=== PATIENT | female | born 1950 | race Caucasian/White ===

== ENCOUNTER 2016-08-02 07:34 | Day surgery (SDC) | payer OTHER ==
[2016-07-29 08:52] VITALS: BMI 30.7
[~2016-08-02 07:34] MED LIST: LACTATED RINGERS 1,000 ML IV SCH
[2016-08-02 08:00] VITALS: RESP 16; TEMP 98.6
[2016-08-02] MEDS ORDERED: PROPOFOL 10 MG/ML 20 ML VIAL IV ONE (08:16)
[2016-08-02] MEDS ORDERED: LIDOCAINE 1% INJ 10MG/ML (20 ML MDV) ONE (08:16)
[2016-08-02] MEDS ORDERED: GLUCAGON 1 MG/ML VIAL ONE (08:16)
--- NOTE | 2016-08-02 08:37 | P.PCN ---
Date of Procedure: 08/02/16 Preoperative Diagnosis: Prior rectal adenoma serrated Postoperative Diagnosis: Diverticuli, internal hemorrhoids, tortuous sigmoid colon Procedure(s) Performed: Colonoscopy Anesthesia: MAC Surgeon: Marleen Nava Estimated Blood Loss (ml): 0 IV fluids (ml): 300 Pathology: none sent Condition: stable Disposition: PACU Indications for Procedure: Prior serrated adenoma of the rectum Operative Findings: Diverticuli, internal hemorrhoids, tortuous sigmoid colon Description of Procedure: Patient was taken to the endoscopy suite and following sedation rectal exam was performed. Patient was noted to have good sphincter tone no masses. Colonoscope was passed through the anus into the rectum. Was passed through the sigmoid colon where was noted to be very tortuous and redundant glucagon was given with relaxation of the sigmoid colon the scope was able to be passed through the sigmoid colon up to the splenic flexure. Was passed to the transverse colon to the hepatic flexure right colon down to the area of the cecum. Circumferential observation mucosa did not reveal any lesions of concern in the cecum or right colon. No lesions of concern in the transverse colon. No lesions of concern in the left colon or sigmoid colon. The sigmoid colon was tortuous and redundant and diverticuli were identified. Scope was brought down to the rectum where it was retroflexed internal hemorrhoids identified no mucosal lesions of concern noted. Proximally 6 minutes were taken to withdraw the scope from the area of the cecum to the rectum. Patient tolerated procedure in stable condition. Impression/plan: 1. Tortuous redundant sigmoid colon 2. Internal hemorrhoids 3. Diverticuli Plan: 1. Conservative management of diverticuli and internal hemorrhoids 2. Repeat scope in 5-7 years secondary to prior serrated adenoma
--- NOTE | 2016-08-02 08:39 | P.DS ---
Providers Attending physician: Marleen Nava Primary care physician: Melvin Peng Plan - Discharge Summary Discharge Medication List Latanoprost Ophth [Xalatan 0.005%] 1 drops BOTH EYES QAM 05/12/16 [History] Levothyroxine Sodium [Levoxyl] 150 mcg PO QAM 05/12/16 [History] Timolol [Betimol 0.5% Ophth Soln] 1 drop BOTH EYES BID 05/12/16 [History] Activity/Diet/Wound Care/Special Instructions: Diverticular diet Do not drive today Follow-up with Dr. Peng in 1 year or call with any questions or problems Discharge Disposition: HOME SELF-CARE
[2016-08-02 08:55] VITALS: BP 146/94; PULSE 75
== END 2016-08-02 09:25 | disposition home or self-care (01) ==
LOC: ORWHC2ENDO 07:34
PROVIDERS: ATTEND Surgery
DX: Z12.11 Encounter for screening for malignant neoplasm of colon (principal); Z87.19 Personal history of other diseases of the digestive system; K57.30 Diverticulosis of large intestine without perforation or abscess without bleeding; K64.8 Other hemorrhoids; Q43.8 Other specified congenital malformations of intestine; Z88.1 Allergy status to other antibiotic agents; Z88.2 Allergy status to sulfonamides; Z88.8 Allergy status to other drugs, medicaments and biological substances; Z79.899 Other long term (current) drug therapy; Z91.018 Allergy to other foods
CPT/HCPCS: J1610; J2001; J2704; G0105

== ENCOUNTER → 2016-08-03 | Outpatient (CLI) | payer OTHER ==
--- NOTE | 2016-08-03 12:48 | MM ---
Reason for exam: screening (asymptomatic). Last mammogram was performed 3 years and 1 month ago. History: Patient is postmenopausal. Took hormonal contraceptives for 4 years beginning at age 18. Took estrogen for 10 years beginning at age 40. Physical Findings: A clinical breast exam by your physician is recommended on an annual basis and results should be correlated with mammographic findings. MG Screening Mammo w CAD Bilateral CC and MLO view(s) were taken. Prior study comparison: July 09, 2013, bilateral digital screening mammo w/CAD. The breast tissue is heterogeneously dense. This may lower the sensitivity of mammography. Finding: There are typically benign round calcifications in both breasts. There is no discrete abnormality. ASSESSMENT: Benign, BI-RAD 2 RECOMMENDATION: Routine screening mammogram of both breasts in 1 year.
--- NOTE | 2016-08-03 13:48 | BD ---
EXAMINATION TYPE: MG DEXA axial skeleton. DATE OF EXAM: 08/03/2016 8:49 AM COMPARISON: NONE CLINICAL HISTORY: Height: 5FT 1 IN Weight: 155 FRAX RISK QUESTIONS: Alcohol (3 or more units per day): YES Family History (Parent hip fracture): NO Glucocorticoids (More than 3mos): NO (Ex: prednisone, prednisolone, methylprednisolone, dexamethasone, and hydrocortisone). History of Fracture in Adulthood: YES Secondary Osteoporosis: 1. Type 1 Diabetes: NO 2. Hyperthyroidism: NO 3. Menopause before 45: YES 4. Malnutrition: NO 5. Chronic liver disease: NO Rheumatoid Arthritis: NO Current Tobacco Use: NO RISK FACTORS HISTORY OF: Other Fractures since Age 50: LT ELBOW FX When: [id number] Drink Alcohol: YES Active: YES Postmenopausal woman: AGE 40 Lost more than 2 inches in height since high school: YES MEDICATIONS: Thyroid Medications: YES Which medication: LEVOTHYROXINE How Long: SINCE AGE 40 Additional Medications: Additional History: MICHELE GANGLION CYSTS REMOVED FROM WRISTS EXAM MEASUREMENTS: Bone mineral densitometry was performed using the [employer] System. Bone mineral density as measured about the Lumbar spine is: ----- L1-L4(G/cm2): 1.329 T Score Values are as follows: ----- L2: -0.4 ----- L3: 1.6 ----- L4: 2.9 ----- L1-L4: 1.2 Bone mineral density has: Decreased -0.5% since study of: 2013 Bone mineral density about the R hip (g/cm2): 0.838 Bone mineral density about the L hip (g/cm2): 0.815 T Score values are as follows: -----R Neck: -1.4 -----L Neck: -1.6 -----R Intertrochanter: -0.7 -----L Intertrochanter: -1.1 Bone mineral density has: Decreased -3.2% since study of: 2013 IMPRESSION: Osteopenia (T Score between -2.5 and -1 as noted by T score values There is slightly increased risk of fracture and the patient may be considered for treatment. Re-Screen 1-2 years. MICHELE HIPS NOTE: T-SCORE=SD OF THE YOUNG ADULT MEAN.
== END | disposition home or self-care (01) ==
LOC: RADMAMWWP 08:09
PROVIDERS: ATTEND Family Medicine
DX: Z12.31 Encounter for screening mammogram for malignant neoplasm of breast (principal); M85.80 Other specified disorders of bone density and structure, unspecified site; Z78.0 Asymptomatic menopausal state
CPT/HCPCS: 77080; G0202

== ENCOUNTER → 2017-08-09 | Outpatient (CLI) | payer OTHER ==
--- NOTE | 2017-08-11 10:57 | MM ---
Reason for exam: screening (asymptomatic). Last mammogram was performed 1 year ago. History: Patient is postmenopausal. Took hormonal contraceptives for 4 years beginning at age 18. Took estrogen for 10 years beginning at age 40. Physical Findings: A clinical breast exam by your physician is recommended on an annual basis and results should be correlated with mammographic findings. MG Screening Mammo w CAD Bilateral CC and MLO view(s) were taken. Prior study comparison: August 03, 2016, bilateral MG screening mammo w CAD. July 09, 2013, bilateral digital screening mammo w/CAD. The breast tissue is heterogeneously dense. This may lower the sensitivity of mammography. No significant changes when compared with prior studies. ASSESSMENT: Benign, BI-RAD 2 RECOMMENDATION: Routine screening mammogram of both breasts in 1 year.
== END | disposition home or self-care (01) ==
LOC: RADMAMWWP 08:10
PROVIDERS: ATTEND Family Medicine
DX: Z12.31 Encounter for screening mammogram for malignant neoplasm of breast (principal)
CPT/HCPCS: 77067

== ENCOUNTER → 2018-07-06 | Outpatient (CLI) | payer MEDICARE ==
--- NOTE | 2018-07-06 07:31 | US ---
EXAMINATION TYPE: US duplex aorta DATE OF EXAM: 07/06/2018 COMPARISON: NONE CLINICAL HISTORY: Z13.9 Encounter for screening. Family history of AAA. EXAM MEASUREMENTS: Abdominal Aorta: Proximal: 1.7 x 2.0 cm Mid: 1.8 x 1.9 cm Distal: 2.1 x 1.8 cm Bifurcation: rt, 1.1 x 1.3 cm ly, 1.1 x 1.2 cm Aorta is visualized from diaphragm through the bifurcation. IMPRESSION: No ultrasound evidence for AAA.
== END | disposition home or self-care (01) ==
LOC: RADUSWWP 07:03
PROVIDERS: ATTEND Family Medicine
DX: Z13.9 Encounter for screening, unspecified (principal)
CPT/HCPCS: 93979

== ENCOUNTER → 2018-08-13 | Outpatient (CLI) | payer MEDICARE ==
--- NOTE | 2018-08-15 11:48 | MM ---
Reason for exam: screening (asymptomatic). Last mammogram was performed 1 year ago. History: Patient is postmenopausal. Took hormonal contraceptives for 4 years beginning at age 18. Took estrogen for 10 years beginning at age 40. Physical Findings: A clinical breast exam by your physician is recommended on an annual basis and results should be correlated with mammographic findings. MG 3D Screening Mammo W/Cad Bilateral CC and MLO view(s) were taken. Prior study comparison: August 09, 2017, bilateral MG screening mammo w CAD. August 03, 2016, bilateral MG screening mammo w CAD. There are scattered fibroglandular densities. No significant changes when compared with prior studies. ASSESSMENT: Negative, BI-RAD 1 RECOMMENDATION: Routine screening mammogram of both breasts in 1 year.
== END ==
LOC: RADMAMWWP 09:48
PROVIDERS: ATTEND Family Medicine
DX: Z12.31 Encounter for screening mammogram for malignant neoplasm of breast (principal)
CPT/HCPCS: 77063; 77067

== ENCOUNTER → 2019-10-28 | Outpatient (CLI) | payer MEDICARE, OTHER ==
--- NOTE | 2019-10-30 10:24 | MM ---
Reason for exam: screening (asymptomatic). Last mammogram was performed 1 year and 2 months ago. History: Patient is postmenopausal. Family history of breast cancer in daughter at age 46. Took hormonal contraceptives for 4 years beginning at age 18. Took estrogen for 10 years beginning at age 40. Physical Findings: A clinical breast exam by your physician is recommended on an annual basis and results should be correlated with mammographic findings. MG 3D Screening Mammo W/Cad Bilateral CC and MLO view(s) were taken. Prior study comparison: August 13, 2018, bilateral MG 3d screening mammo w/cad. August 09, 2017, bilateral MG screening mammo w CAD. There are scattered fibroglandular densities. No significant changes when compared with prior studies. ASSESSMENT: Benign, BI-RAD 2 RECOMMENDATION: Routine screening mammogram of both breasts in 1 year.
== END | disposition home or self-care (01) ==
LOC: RADMAMWWP 07:31
PROVIDERS: ATTEND Family Medicine
DX: Z12.31 Encounter for screening mammogram for malignant neoplasm of breast (principal); Z78.0 Asymptomatic menopausal state
CPT/HCPCS: 77063; 77067

== ENCOUNTER → 2019-11-01 | Outpatient (CLI) | payer MEDICARE, OTHER | END | disposition home or self-care (01) | LOC: LABWHC1 09:32 | PROVIDERS: ATTEND Family Medicine | DX: Z20.828 Contact with and (suspected) exposure to other viral communicable diseases (principal) | CPT/HCPCS: U0003; C9803 ==

== ENCOUNTER 2019-11-21 07:51 | Day surgery (SDC) | payer MEDICARE, OTHER ==
[2019-11-19 14:29] VITALS: BMI 33.0
[~2019-11-21 07:51] MED LIST changes: +LIDOCAINE 1% (10MG/ML) FOR IV START INTRADERMA PRN
[2019-11-21 08:07] VITALS: TEMP 98
[2019-11-21] MEDS ORDERED: LIDOCAINE 1% INJ 10MG/ML (20 ML MDV) ONE (08:55)
[2019-11-21] MEDS ORDERED: PROPOFOL 10 MG/ML 20 ML VIAL IV ONE (08:55)
--- NOTE | 2019-11-21 09:26 | P.PCN ---
Date of Procedure: 11/21/19 Description of Procedure: BRIEF HISTORY: Patient is a 69-year-old female presenting for evaluation of epigastric pain with esophagogastroduodenoscopy. She reports a long-standing history of reflux disease currently on omeprazole daily and Pepcid at night. She reports good control with this regimen but breakthrough symptoms if she misses medications. PROCEDURE PERFORMED: Esophagogastroduodenoscopy with biopsy. PREOPERATIVE DIAGNOSIS: Epigastric abdominal pain, GERD. ESTIMATED BLOOD LOSS: Minimal. IV sedation per anesthesia. PROCEDURE: After informed consent was obtained, the patient was brought into the endoscopy unit. IV sedation was administered by Anesthesia under continuous monitoring. Initially the Olympus GIF-190 video endoscope was inserted into the mouth. Esophagus intubated without any difficulty. It was gradually advanced into the stomach and duodenum and carefully examined. The bulb and the second part of the duodenum appeared normal, with biopsies taken. The scope at this time was withdrawn to the stomach, adequately insufflated with air, and upon careful examination, mucosa of the antrum, body, cardia and the fundus appeared normal, except for some mild scattered erythema in the antrum and body suggestive mild gastritis with biopsies taken. The scope was then withdrawn into the esophagus. The GE junction was located at 33 cm from the incisors, with biopsies taken. A 4 cm hiatal hernia was noted. The esophagus appeared normal. There were no erosions or ulcerations seen and the patient tolerated the procedure well. IMPRESSION: 1. Mild gastritis antrum body, biopsied. 2. Biopsies of the GE junction and duodenum. 3. Large hiatal hernia. RECOMMENDATIONS: The findings of this examination were discussed with the patient. Okay to resume diet. Okay to resume medications. Await pathology from biopsies. Continue current medical regimen with omeprazole and Pepcid therapy.
[2019-11-21 09:46] VITALS: BP 127/67; PULSE 67; RESP 18
== END 2019-11-21 09:53 | disposition home or self-care (01) ==
LOC: ORWHC2ENDO 07:51
PROVIDERS: ATTEND Internal Medicine
DX: K21.0 Gastro-esophageal reflux disease with esophagitis (principal); K44.9 Diaphragmatic hernia without obstruction or gangrene; K29.70 Gastritis, unspecified, without bleeding; E07.9 Disorder of thyroid, unspecified; H40.9 Unspecified glaucoma; Z88.2 Allergy status to sulfonamides; Z79.890 Hormone replacement therapy; Z79.899 Other long term (current) drug therapy; Z90.710 Acquired absence of both cervix and uterus; Z98.890 Other specified postprocedural states; Z88.8 Allergy status to other drugs, medicaments and biological substances; Z86.010 Personal history of colon polyps
CPT/HCPCS: 88305; 43239; J2001; J2704

== ENCOUNTER → 2019-12-06 | Outpatient (CLI) | payer MEDICARE, OTHER ==
--- NOTE | 2019-12-06 13:50 | BD ---
EXAMINATION TYPE: Axial Bone Density DATE OF EXAM: 12/06/2019 COMPARISON: NONE CLINICAL HISTORY: Postmenopausal female Height: 60 Weight: 165.4 FRAX RISK QUESTIONS: Alcohol (3 or more units per day): no Family History (Parent hip fracture): no Glucocorticoids (More than 3mos): no (Ex: prednisone, prednisolone, methylprednisolone, dexamethasone, and hydrocortisone). History of Fracture in Adulthood: yes Secondary Osteoporosis: 1. Type 1 Diabetes: no 2. Hyperthyroidism: no 3. Menopause before 45: yes 4. Malnutrition: no 5. Chronic liver disease: no Rheumatoid Arthritis: no Current Tobacco Use: no RISK FACTORS HISTORY OF: Family History of Osteoporosis: no Active: yes Diet low in dairy products/other sources of calcium: no Postmenopausal woman: age 40 Lost more than 2 inches in height since high school: yes MEDICATIONS: gerd meds Thyroid Medications: levothyroxine How Lon years Additional History: EXAM MEASUREMENTS: Bone mineral densitometry was performed using the [employer] System. Bone mineral density as measured about the Lumbar spine is: ----- L1-L4(G/cm2): 1.286 T Score Values are as follows: ----- L2: -0.9 ----- L3: 0.9 ----- L4: 2.9 ----- L1-L4: 0.9 Bone mineral density has: decreased -4.3 % since study of: 08.03.2016 Bone mineral density about the R hip (g/cm2): 0.799 Bone mineral density about the L hip (g/cm2): 0.801 T Score values are as follows: -----R Neck: -1.7 -----L Neck: -1.7 -----R Total: -1.1 -----L Total: -1.2 Bone mineral density has: decreased -6.6 % since study of: 08.03.2016 IMPRESSION: Osteopenia (T Score between -2.5 and -1). There is slightly increased risk of fracture and the patient may be considered for treatment. Re-Screen 2-5 years. NOTE: T-SCORE=SD OF THE YOUNG ADULT MEAN.
== END | disposition home or self-care (01) ==
LOC: RADBDWWP 08:45
PROVIDERS: ATTEND Family Medicine
DX: M85.80 Other specified disorders of bone density and structure, unspecified site (principal)
CPT/HCPCS: 77080

== ENCOUNTER → 2020-06-16 | Outpatient (CLI) | payer MEDICARE, OTHER ==
--- NOTE | 2020-06-16 12:12 | XR ---
EXAMINATION TYPE: XR Hip Bilateral and AP pelvis DATE OF EXAM: 06/16/2020 COMPARISON: 06/25/2013 HISTORY: Chronic pain TECHNIQUE: Pelvis is examined in a single frontal projection. Bilateral hips are examined in 2 views each. FINDINGS: Spina bifida occulta of S1 is present. There may be attempted lumbarization of S1. Femoral heads articulate with the acetabulum. Joint spaces appear preserved. Symphysis pubis and sacr oiliac joints are patent. No acute fractures are evident. IMPRESSION: 1. No acute osseous abnormalities bilateral hips and pelvis. 2. Chronic changes at the lumbosacral junction
== END | disposition home or self-care (01) ==
LOC: RADXRMAIN 11:17
PROVIDERS: ATTEND Nurse Practitioner Family
DX: M16.0 Bilateral primary osteoarthritis of hip (principal)
CPT/HCPCS: 73521

== ENCOUNTER → 2020-10-30 | Outpatient (CLI) | payer MEDICARE, OTHER ==
--- NOTE | 2020-11-03 13:44 | MM ---
Reason for exam: screening (asymptomatic). Last mammogram was performed 1 year ago. History: Patient is postmenopausal. Family history of breast cancer in daughter at age 46. Took hormonal contraceptives for 4 years beginning at age 18. Took estrogen for 10 years beginning at age 40. Physical Findings: A clinical breast exam by your physician is recommended on an annual basis and results should be correlated with mammographic findings. MG 3D Screening Mammo W/Cad Bilateral CC and MLO view(s) were taken. Prior study comparison: October 28, 2019, bilateral MG 3d screening mammo w/cad. August 13, 2018, bilateral MG 3d screening mammo w/cad. No significant changes when compared with prior studies. ASSESSMENT: Benign, BI-RAD 2 RECOMMENDATION: Routine screening mammogram of both breasts in 1 year.
== END | disposition home or self-care (01) ==
LOC: RADMAMWWP 07:25
PROVIDERS: ATTEND Family Medicine
DX: Z12.31 Encounter for screening mammogram for malignant neoplasm of breast (principal); Z78.0 Asymptomatic menopausal state; Z80.3 Family history of malignant neoplasm of breast; Z79.3 Long term (current) use of hormonal contraceptives
CPT/HCPCS: 77063; 77067

== ENCOUNTER → 2021-07-28 | Outpatient (CLI) | payer MEDICARE, OTHER ==
--- NOTE | 2021-07-28 21:25 | XR ---
EXAMINATION TYPE: XR cervical spine 5 views comp, XR knee complete 3 views RT, XR shoulder complete 3 views LT DATE OF EXAM: 07/28/2021 COMPARISON: None HISTORY: 70-year-old female and 5 4.2, pain after fall 2 weeks ago. M2 4.9, M3.90. FINDINGS: Cervical spine: No predental space widening or prevertebral soft tissue swelling. Degenerative changes of the C1 dens articulation. Mild to moderate degenerative disc disease with endplate spondylosis C5-C7 levels. The re is degenerative trace grade 1 anterolisthesis C4-C5. Hypertrophic facet and uncovertebral joint ar thropathy at multiple levels. On the left, there is moderate bony neuroforaminal narrowing at C4-C5, C5-C6, and C6-C7. On the right, moderate bony neuroforaminal narrowing C6-C7 and mild to moderate C4- C5. Normal odontoid view. Left shoulder: Mild degenerative spurring and joint space narrowing at the AC joint. Degenerative spurring inferior humeral head with mild joint space narrowing. Bony irregularity at the greater tuberosity. There is h azy density at the left base which may represent prominent superimposed soft tissue. Right knee: Tricompartmental degenerative spurring. Mild anterior soft tissue swelling. Extensor mechanism is int act. No knee joint effusion. IMPRESSION: 1. Cervical spine: Moderate multilevel spondylotic change. Degenerative grade 1 anterolisthesis C4-C5 . Variable moderate bony neuroforaminal narrowing, left greater than right as above. 2. Left shoulder: Mild AC joint OA. Possibly more moderate GH joint OA. Additional bony changes heidi tible with chronic rotator cuff tendinopathy. No acute osseous abnormality seen. Questionable density at the left base could represent superimposed soft tissue. If any respiratory signs/symptoms, dedica du chest radiograph can be performed. 3. Right knee: Mild to moderate tricompartmental osteoarthrosis. A weight-bearing view could better a ssess the degree of joint space narrowing. Anterior soft tissue swelling. No joint effusion or acute osseous abnormality seen.
== END | disposition home or self-care (01) ==
LOC: RADXRMAIN 16:57
PROVIDERS: ATTEND Family Medicine
DX: M47.812 Spondylosis without myelopathy or radiculopathy, cervical region (principal); M43.12 Spondylolisthesis, cervical region; M99.71 Connective tissue and disc stenosis of intervertebral foramina of cervical region; M19.012 Primary osteoarthritis, left shoulder; M17.11 Unilateral primary osteoarthritis, right knee; M79.89 Other specified soft tissue disorders
CPT/HCPCS: 72050

== ENCOUNTER → 2021-08-27 | Outpatient (CLI) | payer MEDICARE ==
--- NOTE | 2021-08-27 12:29 | MR ---
EXAMINATION TYPE: MR knee RT wo con DATE OF EXAM: 08/27/2021 COMPARISON: None HISTORY: Right knee pain TECHNIQUE: Multiplanar, multisequence images of the knee is performed without IV contrast. FINDINGS: MEDIAL MENISCUS: Anterior and posterior horns are intact without tear. LATERAL MENISCUS: Diminutive anterior horn and body of the lateral meniscus could reflect a prior men iscectomy. Correlate clinically. Tear is not excluded. CRUCIATE LIGAMENTS: The anterior and posterior cruciate ligaments are intact and unremarkable. COLLATERAL LIGAMENTS: The medial collateral ligament and lateral collateral ligament complex are inta ct and unremarkable. EXTENSOR MECHANISM: Visualized quadriceps and patellar tendons are intact. EFFUSION: Small joint effusion present POPLITEAL CYST: Díaz's cyst measuring 5.4 cm in length and 9.5 mm AP dimension. TRICOMPARTMENT SPACES: Moderate degenerative narrowing lateral tibiofemoral joint space with mild fermin rowing medial tibiofemoral joint space. Moderate narrowing patellofemoral joint space with changes of chondromalacia patella and cartilaginous thinning. CARTILAGE: Intact BONE MARROW SIGNAL: No focal abnormal marrow signal is appreciated. OTHER: No additional significant abnormality is appreciated. IMPRESSION: 1.Diminutive anterior horn and body of the lateral meniscus could reflect a prior meniscectomy. Corre late clinically. Tear is not excluded. 2. Degenerative changes of osteoarthritis. Chondromalacia patella. 3. Díaz's cyst
== END | disposition home or self-care (01) ==
LOC: RADMRIMAIN 10:25
PROVIDERS: ATTEND Orthopaedic Surgery
DX: M17.11 Unilateral primary osteoarthritis, right knee (principal); M22.41 Chondromalacia patellae, right knee; M71.21 Synovial cyst of popliteal space [Baker], right knee

== ENCOUNTER 2021-10-28 08:19 | Day surgery (SDC) | payer MEDICARE, OTHER ==
[2021-10-26 15:41] VITALS: BMI 30.2
--- NOTE | 2021-10-28 07:36 | P.GSHP ---
History of Present Illness H&P Date: 10/28/21 CHIEF COMPLAINT: Colon screen HISTORY OF PRESENT ILLNESS: The patient is a 71-year-old female who presents for colon screen. Lower endoscopy was offered for further evaluation and management. PAST MEDICAL HISTORY: Please see list. PAST SURGICAL HISTORY: Please see list. MEDICATIONS: Please see list. ALLERGIES: Please see list. SOCIAL HISTORY: No illicit drug use FAMILY HISTORY: No reports of Crohn disease or ulcerative colitis. REVIEW OF ORGAN SYSTEMS: CONSTITUTIONAL: No reports of fevers or chills. PHYSICAL EXAM: VITAL SIGNS: Stable GENERAL: Well-developed pleasant in no acute distress. HEENT: No scleral icterus. Extraocular movements grossly intact. Moist buccal mucosa. NECK: Supple without lymphadenopathy. CHEST: Unlabored respirations. Equal bilateral excursions. CARDIOVASCULAR: Regular rate and rhythm. Distal 2+ pulses. ABDOMEN: Soft, nontender, nondistended. MUSCULOSKELETAL: No clubbing, cyanosis, or edema. ASSESSMENT: 1. Colon screen. PLAN: 1. Recommend proceeding with a lower endoscopy Past Medical History Past Medical History: Eye Disorder, Thyroid Disorder Additional Past Medical History / Comment(s): HX. COLON POLYP x1. HX GLAUCOMA(BILATERAL). History of Any Multi-Drug Resistant Organisms: None Reported Past Surgical History: Heart Catheterization, Hysterectomy, Orthopedic Surgery, Tonsillectomy Additional Past Surgical History / Comment(s): HX 3 COLONOSCOPIES."BILAT KNEE SCOPE". MICHELE. EYE SURG. Past Anesthesia/Blood Transfusion Reactions: No Reported Reaction Additional Past Anesthesia/Blood Transfusion Reaction / Comment(s): "I had a rough time coming out of my last knee procedure" Smoking Status: Never smoker - Past Family History Mother Family Medical History: No Reported History Daughter(s) Family Medical History: No Reported History Medications and Allergies Home Medications Medication Instructions Recorded Confirmed Type Latanoprost Ophth [Xalatan 0.005%] 1 drops BOTH EYES QAM 05/12/16 10/26/21 History Timolol [Betimol 0.5% Ophth Soln] 1 drop BOTH EYES BID 05/12/16 10/26/21 History Levothyroxine Sodium 137 mcg PO QAM 11/19/19 10/26/21 History Omeprazole 20 mg PO DAILY PRN 11/19/19 10/26/21 History Allergies Allergy/AdvReac Type Severity Reaction Status Date / Time sulfamethoxazole Allergy Itching/RED Verified 10/26/21 15:32 [From Bactrim] RASH trimethoprim [From Bactrim] Allergy Itching/RED Verified 10/26/21 15:32 RASH
[2021-10-28 08:56] VITALS: RESP 16; TEMP 97.3
[2021-10-28] MEDS ORDERED: PROPOFOL 10 MG/ML 20 ML VIAL IV ONE (09:51)
[2021-10-28 10:27] VITALS: BP 123/73; PULSE 57
--- NOTE | 2021-10-28 10:56 | P.PCN ---
Date of Procedure: 10/28/21 Description of Procedure: PREOPERATIVE DIAGNOSIS: Personal history of colon polyps Colonoscopy screening POSTOPERATIVE DIAGNOSIS: Tubular adenoma hepatic flexure Tubular adenoma splenic flexure Sigmoid diverticulosis OPERATION: Colonoscopy to the ileocecal valve and appendiceal orifice, cecum Colonoscopy with hot snare polypectomy SURGEON: Mimi Hawkins MD. ANESTHESIA: MAC. INDICATIONS: The patient is an 71-year-old female who presents personal history of colon polyps. Last colonoscopy 5 years. Benefits and risks were described and informed consent was obtained. DESCRIPTION OF PROCEDURE: The patient had undergone Sutab prep. The patient had been brought into the operating room and laid in the left lateral decubitus position. After adequate intravenous sedation, the rectum was examined with 2% lidocaine jelly. No external hemorrhoids were encountered. The rectal tone was within normal limits. No lesions were palpated in the rectal vault. An Olympus colonoscope was advanced until the cecum, ileocecal valve and appendiceal orifice were clearly viewed. The prep was excellent. id diverticulosis was encountered. Colonic polyps were found and removed. No evidence of focal colitis was found. Retroflexion of the scope demonstrated grade 2 internal hemorrhoids without active bleeding or inflammation. The colon was desufflated. The patient had tolerated the procedure well. Withdrawal time was over 6 minutes. FINDINGS: Aronchick preparation quality scale 1 (1-5) Internal hemorrhoids, grade 1 No external hemorrhoids No arteriovenous malformations. Sigmoid diverticulosis Removal of 2 polyps: - Snare polypectomy hepatic flexure, 5 mm tubulovillous adenoma polyp. - Snare polypectomy sigmoid flexure, 8 mm flat villous adenoma polyp. No focal colitis. RECOMMENDATIONS: Repeat colonoscopy in 3 years, 2024 Plan - Discharge Summary Discharge Rx Participant: No New Discharge Prescriptions: Continue Latanoprost Ophth [Xalatan 0.005%] 1 drops BOTH EYES QAM Timolol [Betimol 0.5% Ophth Soln] 1 drop BOTH EYES BID Omeprazole 20 mg PO DAILY PRN PRN Reason: reflux Levothyroxine Sodium 137 mcg PO QAM Discharge Medication List Latanoprost Ophth [Xalatan 0.005%] 1 drops BOTH EYES QAM 05/12/16 [History] Timolol [Betimol 0.5% Ophth Soln] 1 drop BOTH EYES BID 05/12/16 [History] Levothyroxine Sodium 137 mcg PO QAM 11/19/19 [History] Omeprazole 20 mg PO DAILY PRN 11/19/19 [History] Follow up Appointment(s)/Referral(s): Mimi Hawkins MD [STAFF PHYSICIAN] - As Needed Patient Instructions/Handouts: *Sur[facility] - (Anesthesia) Endoscopy Discharge Instructions, Diverticulosis (DC), Colorectal Polyps (GEN), Diverticulosis Diet (GEN), Colonoscopy (DC) Activity/Diet/Wound Care/Special Instructions: Repeat colonoscopy in 3 years, 2024 Discharge Disposition: HOME SELF-CARE
== END 2021-10-28 11:11 | disposition home or self-care (01) ==
LOC: ORWHC2ENDO 08:19
PROVIDERS: ATTEND Surgery Plastic and Reconstructive Surgery
DX: Z12.11 Encounter for screening for malignant neoplasm of colon (principal); D12.3 Benign neoplasm of transverse colon; K57.30 Diverticulosis of large intestine without perforation or abscess without bleeding; K64.1 Second degree hemorrhoids; Z86.010 Personal history of colon polyps; E07.9 Disorder of thyroid, unspecified; H40.9 Unspecified glaucoma; Z79.890 Hormone replacement therapy; Z88.2 Allergy status to sulfonamides; Z88.3 Allergy status to other anti-infective agents; K21.9 Gastro-esophageal reflux disease without esophagitis
CPT/HCPCS: 88305; 45385; J2704

== ENCOUNTER → 2022-01-27 | Outpatient (CLI) | payer MEDICARE ==
--- NOTE | 2022-01-28 15:45 | MM ---
Reason for Exam: Screening (asymptomatic). Last mammogram was performed 1 year(s) and 3 month(s) ago. Patient History: Menarche at age 13. First Full-Term at age 19. Left ovary removed at age 40. Right ovary removed at age 40. Hysterectomy at age 40. Postmenopausal. Patient has history of breast feeding. Estrogen for 10 years from age 40 until age 50. Hormonal Contraceptives for 4 years from age 18 until age 24. Daughter had breast cancer, age 46. Risk Values: Erica 5 year model risk: 3.2%. NCI Lifetime model risk: 8.8%. Prior Study Comparison: 08/13/2018 Bilateral Screening Mammogram, [facility]. 10/28/2019 Bilateral Screening Mammogram, [facility]. 10/30/2020 Bilateral Screening Mammogram, [facility]. Tissue Density: There are scattered fibroglandular densities. Findings: Analyzed By CAD. Pattern appears stable. Benign calcifications are present bilaterally. No suspicious groups of microcalcifications, spiculated or lobular masses, architectural distortion or other secondary signs of malignancy are mammographically apparent. Overall Assessment: Benign, BI-RAD 2 Management: Screening Mammogram of both breasts in 1 year. A negative mammogram report should not preclude additional follow up of suspicious palpable abnormalities. Patient should continue monthly self breast exam. A clinical breast exam by your physician is recommended on an annual basis and results should be correlated with mammographic findings. Electronically signed and approved by: Oumar Whiting D.O. Radiologis
== END | disposition home or self-care (01) ==
LOC: RADMAMWWP 07:34
PROVIDERS: ATTEND Family Medicine
DX: Z12.31 Encounter for screening mammogram for malignant neoplasm of breast (principal); Z78.0 Asymptomatic menopausal state; Z80.3 Family history of malignant neoplasm of breast; Z90.721 Acquired absence of ovaries, unilateral
CPT/HCPCS: 77063; 77067

== ENCOUNTER → 2022-02-04 | Outpatient (CLI) | payer MEDICARE ==
--- NOTE | 2022-02-04 09:07 | BD ---
EXAMINATION TYPE: Axial Bone Density DATE OF EXAM: 02/04/2022 COMPARISON: NONE CLINICAL HISTORY: 71 years year old Female. ICD-10 CODE: Z78.0 ASYMPTOMATIC MENOPAUSAL Height: 60 Weight: 157.7 FRAX RISK QUESTIONS: Alcohol (3 or more units per day): NO Family History (Parent hip fracture): NO Glucocorticoids (More than 3mos): NO History of Fracture in Adulthood: FOOT Secondary Osteoporosis: 1. Type 1 Diabetes: NO 2. Hyperthyroidism: NO 3. Menopause before 45: YES 4. Malnutrition: NO 5. Chronic liver disease: NO Rheumatoid Arthritis: NO Current Tobacco Use: NO RISK FACTORS HISTORY OF: Hip Fracture (Right/Left): NO Spine Fracture: NO History of Wrist Fracture: NO Surgery to Spine/Hip(right/left)/Wrist (right/left): NO Family History of Osteoporosis: PATERNAL GRANDMOTHER Active: YES Diet low in dairy products/other sources of calcium: YES Postmenopausal woman: NO Take estrogen and/or progesterone medications: NO Lost more than 2 inches in height since high school: YES Frequent falls: NO Poor Health: NO Hyperparathyroidism: NO Adrenal Insufficiency: NO MEDICATIONS: Prednisone or other steroids: NO Thyroid Medications: SYNTHROID, How Long: SINCE AGE 40 Osteoporosis Medications: NO Additional Medications: NONE EXAM MEASUREMENTS: Bone mineral densitometry was performed using the [employer] System. Bone mineral density as measured about the Lumbar spine is: ----- L1-L4(G/cm2): 1.250 T Score Values are as follows: ----- L1: 0.5 ----- L2: -0.3 ----- L3: 0.7 ----- L4: 1.4 ----- L1-L4: 0.6 Bone mineral density has: DECREASE 7.6 % since study of: 08/03/2016 Bone mineral density about the R hip (g/cm2): 0.741 Bone mineral density about the L hip (g/cm2): 0.785 T Score values are as follows: -----R Neck: -2.1 -----L Neck: -1.8 -----R Total: -1.3 -----L Total: -1.5 Bone mineral density has: DECREASED 10.2 % since study of: 08/03/2016 FRAX%s: The graph provided illustrates a 19.5% chance for a major osteoporotic fx and a 4.1% chance f or the hips probability for fx in 10 years time. IMPRESSION: Osteopenia (T Score between -2.5 and -1). There is slightly increased risk of fracture and the patient may be considered for treatment. Re-Screen 2-5 years. NOTE: T-SCORE=SD OF THE YOUNG ADULT MEAN.
== END | disposition home or self-care (01) ==
LOC: RADBDWWP 07:23
PROVIDERS: ATTEND Family Medicine
DX: M85.89 Other specified disorders of bone density and structure, multiple sites (principal); Z78.0 Asymptomatic menopausal state
CPT/HCPCS: 77080

== ENCOUNTER → 2023-02-27 | Outpatient (CLI) | payer MEDICARE ==
--- NOTE | 2023-02-27 08:08 | MM ---
Reason for Exam: Screening (asymptomatic). Last mammogram was performed 1 year(s) and 1 month(s) ago. Patient History: Menarche at age 13. First Full-Term at age 19. Left ovary removed at age 40. Right ovary removed at age 40. Hysterectomy at age 40. Postmenopausal. Patient has history of breast feeding. Estrogen for 10 years from age 40 until age 50. Hormonal Contraceptives for 4 years from age 18 until age 24. Daughter had breast cancer, age 46. Risk Values: Erica 5 year model risk: 3.3%. NCI Lifetime model risk: 8.4%. Prior Study Comparison: 10/28/2019 Bilateral Screening Mammogram, [facility]. 10/30/2020 Bilateral Screening Mammogram, [facility]. 01/27/2022 Bilateral MG 3D screening mammo w/cad, [facility]. Tissue Density: There are scattered fibroglandular densities. Findings: Analyzed By CAD. There is no suspicious group of microcalcifications or new suspicious mass in either breast. Benign calcifications within both breasts. Overall Assessment: Benign, BI-RAD 2 Management: Screening Mammogram of both breasts in 1 year. A clinical breast exam by your physician is recommended on an annual basis and results should be correlated with mammographic findings. Note on Erica scores and lifetime risk: 1. A Erica score greater than 3% is considered moderate risk. If this is the case, consider specialist referral to assess eligibility for a risk reducing agent. If overall lifetime risk for the development of breast cancer is 20% or higher, the patient may qualify for future screening with alternating mammogram and breast MRI. Electronically signed and approved by: Ajith Espinal D.O.
== END | disposition home or self-care (01) ==
LOC: RADMAMWWP 07:00
PROVIDERS: ATTEND Family Medicine
DX: Z12.31 Encounter for screening mammogram for malignant neoplasm of breast (principal); Z78.0 Asymptomatic menopausal state; Z80.3 Family history of malignant neoplasm of breast
CPT/HCPCS: 77063; 77067

== ENCOUNTER → 2024-04-03 | Outpatient (CLI) | payer MEDICARE ==
--- NOTE | 2024-04-03 09:25 | MM ---
Reason for Exam: Screening (asymptomatic). Last mammogram was performed 1 year(s) and 1 month(s) ago. Patient History: Menarche at age 13. First Full-Term at age 19. Left ovary removed at age 40. Right ovary removed at age 40. Hysterectomy at age 40. Postmenopausal. Patient has history of breast feeding. Estrogen for 10 years from age 40 until age 50. Hormonal Contraceptives for 4 years from age 18 until age 24. Daughter had breast cancer, age 46. Risk Values: Erica 5 year model risk: 3.3%. NCI Lifetime model risk: 7.9%. Prior Study Comparison: 10/30/2020 Bilateral Screening Mammogram, [facility]. 01/27/2022 Bilateral MG 3D screening mammo w/cad, [facility]. 02/27/2023 Bilateral MG 3D screening mammo w/cad, [facility]. Tissue Density: There are scattered areas of fibroglandular density. Findings: Analyzed By CAD. Right breast: There is no suspicious group of microcalcifications or new suspicious mass. Left breast: There is no suspicious group of microcalcifications or new suspicious mass. Overall Assessment: Negative, BI-RAD 1 Management: Screening Mammogram of both breasts in [address] [facility] will attempt to contact patient to return for supplemental views and ultrasound if indicated. Patient should continue monthly self-breast exams. A clinical breast exam by your physician is recommended on an annual basis. This exam should not preclude additional follow-up of suspicious palpable abnormalities. Note on Erica scores and lifetime risk: 1. A Erica score greater than 3% is considered moderate risk. If this is the case, consider specialist referral to assess eligibility for a risk reducing agent. 2. If overall lifetime risk for the development of breast cancer is 20% or higher, the patient may qualify for future screening with alternating mammogram and breast MRI. [facility], , 04/03/2024 9:21 AM. Electronically signed and approved by: Arjun Burgos DO
--- NOTE | 2024-04-03 11:12 | US ---
EXAMINATION TYPE: US carotid duplex BILAT DATE OF EXAM: 04/03/2024 COMPARISON: NONE CLINICAL INDICATION: Female, 73 years old with history of G45.9 TIA; Additional History: .... TECHNIQUE: Grayscale, color Doppler and spectral Doppler evaluation of the bilateral carotid systems and vertebral arteries. Indirect Doppler criteria was utilized. FINDINGS: EXAM MEASUREMENTS: RIGHT: Peak Systolic Velocity (PSV) cm/sec ----- Right CCA: 61.1 ----- Right ICA: 82.6 ----- Right ECA: 88.4 ICA/CCA ratio: 1.4 RIGHT: End Diastole cm/sec ----- Right CCA: 19.3 ----- Right ICA: 25.2 ----- Right ECA: 13.8 LEFT: Peak Systolic Velocity (PSV) cm/sec ----- Left CCA: 81.5 ----- Left ICA: 106 ----- Left ECA: 65.6 ICA/CCA ratio: 1.3 LEFT: End Diastole cm/sec ----- Left CCA: 25.8 ----- Left ICA: 43.6 ----- Left ECA: 10.7 VERTEBRALS (direction of flow): Right Vertebral: Antegrade Left Vertebral: Antegrade Rhythm: Normal [facility] [employer] NOTES: No elevated velocities or significant stenosis seen bilaterally, mild plaque seen within RT Bulb. Color Doppler imaging shows patency with blood flow throughout the carotid artery. Spectral waveforms are within normal limits. IMPRESSION: Right: No hemodynamically significant stenosis. Left: No hemodynamically significant stenosis. Criteria for Assigning % of Stenosis / Diameter reduction (Estimation based on the indirect measurements of the internal carotid artery velocities (ICA PSV). 1. Normal (no stenosis)=ICA PSV < 125 cm/s: ratio < 2.0: ICA EDV<40 cm/s. 2. Less than 50% stenosis=ICA PSV < 125 cm/s: ratio < 2.0: ICA EDV<40 cm/s. 3. 50 to 69% stenosis=ICA PSV of 125 to 230 cm/s: ration 2.0 ? 4.0: ICA EDV 40-100 cm/s. 4. Greater than 70% stenosis to near occlusion= ICA PSV > 230 cm/s: ratio > 4.0: ICA EDV > 100 cm/s. 5. Near occlusion= ICA PSV velocities may be low or undetectable: variable ratio and ICA EDV. 6. Total occlusion=unable to detect flow. [facility], , 04/03/2024 11:10 AM
--- NOTE | 2024-04-03 14:10 | BD ---
EXAMINATION TYPE: Axial Bone Density DATE OF EXAM: 04/03/2024 CLINICAL HISTORY: 73 years old Female. ICD-10 CODE: Z78.0 ASYM STATE , Additional History: Height: 60.2 in Weight: 166 lbs FRAX RISK QUESTIONS: History of Fracture in Adulthood: lt elbow fx age 45 Secondary Osteoporosis: 3. Menopause before 45: total hysterectomy age 40 MEDICATIONS: Thyroid Medications: yes Which medication: Levothyroxine How Long: since age 41 EXAM MEASUREMENTS: Bone mineral densitometry was performed using the [employer] System. Bone mineral density as measured about the Lumbar spine is: ----- L1-L4(G/cm2): 1.284 T Score Values are as follows: ----- L1: 1.3 ----- L2: -0.5 ----- L3: 0.3 ----- L4: 2.2 ----- L1-L4: 0.9 Z Score Values are as follows: ----- L1: 2.7 ----- L2: 0.9 ----- L3: 1.7 ----- L4: 3.6 ----- L1-L4: 2.2 Bone mineral density has: Increased 2.7% since study of: 02/04/2022 Bone mineral density about the R hip (g/cm2): 0.828 Bone mineral density about the L hip (g/cm2): 0.812 T Score values are as follows: -----R Neck: -2.0 -----L Neck: -2.1 -----R Total: -1.4 -----L Total: -1.6 Z Score values are as follows: -----R Neck: -0.3 -----L Neck: -0.4 -----R Total: 0.0 -----L Total: -0.2 Bone mineral density has: Decreased -1.0% since study of: 02/04/2022 FRAX%s: The graph provided illustrates a 19.2% chance for a major osteoporotic fx and a 4.3% chance f or the hips probability for fx in 10 years time. IMPRESSION: Osteopenia (T Score between -2.5 and -1). There is slightly increased risk of fracture and the patient may be considered for treatment. Re-Screen 2-5 years. NOTE: T-SCORE=SD OF THE YOUNG ADULT MEAN. [facility], , 04/03/2024 2:07 PM
== END | disposition home or self-care (01) ==
LOC: RADMAMWWP 08:12
PROVIDERS: ATTEND Family Medicine
DX: Z12.31 Encounter for screening mammogram for malignant neoplasm of breast (principal); G45.9 Transient cerebral ischemic attack, unspecified; Z78.0 Asymptomatic menopausal state; Z90.722 Acquired absence of ovaries, bilateral; Z80.3 Family history of malignant neoplasm of breast; R92.323 Mammographic fibroglandular density, bilateral breasts; M85.89 Other specified disorders of bone density and structure, multiple sites
CPT/HCPCS: 77063; 77067; 77080; 93880

== ENCOUNTER → 2024-04-29 | Outpatient (CLI) | payer MEDICARE ==
--- NOTE | 2024-04-29 16:33 | XR ---
EXAMINATION TYPE: XR wrist complete LT DATE OF EXAM: 04/29/2024 12:11 PM COMPARISON: None. CLINICAL INDICATION: Female, 73 years old with history of M25.439 EFFUSION, UNSPECIFIED WRIST, pain TECHNIQUE: 4 view(s) obtained. FINDINGS: Degenerative joint changes are on the first carpal metacarpal junction. Some additional change betwee n the scaphoid and the trapezium is present. No displaced fractures are evident. Mild diffuse soft tissue swelling is over the wrist. Follow up exams can be performed as clinically indicated. If there is clinical concern for soft tissu e injury, MRI could be utilized further evaluate. IMPRESSION: 1. Degenerative changes within the lateral wrist. 2. No acute osseous abnormality radiographically apparent [facility], , 04/29/2024 4:31 PM
== END | disposition home or self-care (01) ==
LOC: RADXRMAIN 11:47
PROVIDERS: ATTEND Family Medicine
DX: M19.032 Primary osteoarthritis, left wrist (principal)

== ENCOUNTER → 2024-05-02 | Outpatient (CLI) | payer MEDICARE ==
--- NOTE | 2024-05-02 16:03 | XR ---
EXAMINATION TYPE: XR cervical spine comp DATE OF EXAM: 05/02/2024 3:29 PM COMPARISON: None. CLINICAL INDICATION: Female, 73 years old with history of M54.12 no acute fracture or dislocation valdez dent. Joint spaces are preserved. REGION, pain TECHNIQUE: 5 view(s) obtained. FINDINGS: Foraminal narrowing is present on the right C4-5 and to a milder degree C5-6. Mild foraminal narrowin g is present C3-4 C4-5 C5-6 on the left. Prevertebral space is normal. Disc narrowing is present C3-4 through C6-7. Posterior spinal lamellar line is intact. IMPRESSION: 1. Degenerative changes cervical spine. 2. No acute osseous abnormality. [facility], , 05/02/2024 4:01 PM
== END | disposition home or self-care (01) ==
LOC: RADXRMAIN 14:54
PROVIDERS: ATTEND Family Medicine
DX: M50.30 Other cervical disc degeneration, unspecified cervical region (principal)
CPT/HCPCS: 72050

== ENCOUNTER → 2024-05-08 | Outpatient (CLI) | payer MEDICARE ==
--- NOTE | 2024-05-08 18:37 | MR ---
MRI CERVICAL SPINE: CLINICAL HISTORY: Radiculopathy. Neck pain, left arm pain and numbness and tingling into hand after i njury. TECHNIQUE: Multiplanar, multisequence imaging of the cervical spine is performed without and with IV contrast, 7.5 cc of gadolinium was given intravenously. COMPARISON: Cervical spine x-ray April 22, 2024 FINDINGS: Sagittal images of the cervical spine show the craniocervical junction to appear within nor mal limits. The cervical and upper thoracic spinal cord is normal in course, caliber, and signal. Th ere is grade 1 anterolisthesis C4 on C5. The vertebral body heights are normal. There is mild disc space narrowing and spurring at C5-C6 and C6-C7 levels. The bone marrow signal intensity is within no rmal limits. No abnormal postcontrast enhancement is seen. Axial images at C2-C3 level appear within normal limits. Axial images at C3-C4 level with a left-sided uncovertebral facet degenerative change causing asymmet chhaya moderate left-sided neural foraminal narrowing. Axial images at C4-C5 level shows left facet degenerative change causing [id number] left-sided neural foraminal narrowing. Axial images C5-C6 levels show broad-based posterior disc protrusion effaces the anterior thecal sac surface of the spinal cord and causing mild right and moderate left-sided neural foraminal narrowing. Axial images at C6-C7 level shows central disc protrusion effacing the anterior thecal sac nearly to the surface of the spinal cord and causing mild right and mild to moderate left-sided neural foramina l narrowing. Axial images at C7-T1 lungs appear within normal limits. IMPRESSION: Multilevel degenerative changes in the cervical spine greatest at C5-C6 and C6-C7 levels as detailed above. [facility], , 05/08/2024 6:35 PM
== END | disposition home or self-care (01) ==
LOC: RADMRIMAIN 17:12
PROVIDERS: ATTEND Family Medicine
DX: M50.123 Cervical disc disorder at C6-C7 level with radiculopathy (principal); M47.22 Other spondylosis with radiculopathy, cervical region
CPT/HCPCS: 72156; A9585